=== PATIENT | female | born 2000 | race Caucasian/White ===

== ENCOUNTER 2024-06-18 23:15 | Emergency (ER) | payer OTHER ==
--- OUTSIDE RECORDS SUMMARY | 2024-06-18 23:18 | XMS REPORT | Continuity of Care Document ---
Author Name Unknown Address [address] [facility] [address] [place] [address] [facility] thconnect Address [address] [facility] [address] [place] [address] Care Team Providers Care Employee Health Nurse Name Role Phone Pcp, Patient Does Not Have A Primary Care Physic jennie Gay Dudley MD Attending Clinician [phone] GAY DUDLEY Attending Clinician Unavailable David Fernandez MD Attending Clinician [phone] DAVID FERNANDEZ Attending Clinician Unavailable DAVID FERNANDEZ Attending Clinician Unavailable MICHELLE BOONE Attending Clinician Unavailab Michelle Woodall DO Attending Clinician [phone] ALLAN Attending Clinician Unavailable Ginny_Kasi Attending Clinician Unavailable GAY DUDLEY Admitting Clinician Unavailable DAVID FERNANDEZ Admitting Clinician Unavailable ALLAN Admitting Clinician Unavailable Mikki Admitting Clinician Unavailable Payers Payer Name Policy Type Policy Number Effective Date Expirati on Date Source [facility] MEDICAID [id number] 2021 00:00:00 [facility] (MEDICAID HMO) [id number] 2021 00:00:00 [place] [id number] Problems Condition Name Condition Details Condition Category Status Onset Date Resolution Date Last Treatment Date Treating Clinician Comments Source Chest pain, unspecifie d type Chest pain, unspecifie d type Disease Active 2023-04 00:00: 00 [facility] Cigarette smoker Cigarette smoker Disease Active 2023-04 00:00: 00 [facility] Gastroesop hageal reflux disease without esophagiti s Gastroesop hageal Reflux Disease without Esophagiti s Problem Active 2 00:00: 00 [facility] Nicotine dependence Nicotine Dependence Problem Active 05-04 00:00: 00 [facility] Late entry into care Late Entry into Care Problem Active 05-04 00:00: 00 [facility] History of opioid abuse History of Opioid Abuse Problem Active 05-04 00:00: 00 [facility] Problem Active 05-01 00:00: 00 [facility] No known active problems No known active problems Disease [facility] Allergies, Adverse Reactions, Alerts Allergy Name Allergy Type Status Severity Reaction(s) Onset Date Inactive Date Treating Clinician Comments Source NO KNOWN ALLERGIE S Drug Class Active [facility] Social History Social Habit Start Date Stop Date Quantity Comments Source [facility] of tobacco use Cigarette Smoker [facility] Tobacco use and exposure 2024-04-13 00:00:00 2024-04-13 00:00:00 Smokeless tobacco non-user [facility] History of Social function 2024-04-13 00:00:00 2024-04-13 00:00:00 [facility] Exposure to SARS-CoV-2 (event) 2021-11-21 00:00:00 2021-12-01 17:02:00 Not sure [facility] Sex assigned at 2000 00:00:00 2000 00:00:00 [facility] Smoking Status Start Date Stop Date Source Tobacco smoking consumption unknown [facility] Light Tobacco Smoker [facility] Smokes tobacco daily 2024-04-13 00:00:00 [facility] Medications Ordered Medication Name Filled Medication Name Start Date Stop Date Current Medication? Ordering Clinician Indication Dosage Frequency Signature (SIG) Comments Components Source furosemide (LASIX) injection 20 mg 2023-04 06:45: 00 03-08 06:54 :00 No 20mg 20 mg, IV Push, ONCE, 1 dose, On Tricia 03/08/24 at 0045, STEFANO [facility] furosemide 20 mg tablet 2023-04 00:00: 00 03-16 05:59 :00 No [id number] 20mg Take 1 tablet by mouth every morning for 7 days. [facility] No known medications 12-01 16:54: 26 No No known medication s [facility] buprenorphi ne 8 mg-naloxone 2 mg sublingual tablet TAKE TWO (2) TABLETS SUBLINGUALL Y DAILY. buprenorphi ne 8 mg-naloxone 2 mg sublingual tablet TAKE TWO (2) TABLETS SUBLINGUALL Y DAILY. No buprenorph ine 8 mg-naloxon e 2 mg sublingual tablet TAKE TWO (2) TABLETS SUBLINGUAL LY DAILY. [facility] omeprazole 40 mg capsule,del ayed release Take 1 capsule every day by oral route. omeprazole 40 mg capsule,del ayed release Take 1 capsule every day by oral route. No 1capsul e(s) Q1D omeprazole 40 mg capsule,de layed release Take 1 capsule every day by oral route. [facility] + DHA one daily + DHA one daily No + DHA one daily [facility] Vital Signs Vital Name Observation Time Observation Value Comments S ouraman Systolic blood pressure 2024-04-13 21:41:00 98 mm[Hg] [facility] Diastolic blood pressure 2024-04-13 21:41:00 64 mm[Hg] [facility] Heart rate 2024-04-13 21:41:00 77 /min [facility] Respiratory rate 2024-04-13 21:41:00 18 /min [facility] Body height 2024-04-13 21:41:00 158.8 cm [facility] Body weight 2024-04-13 21:41:00 58.968 kg [facility] BMI 2024-04-13 21:41:00 23.40 kg/m2 [facility] Oxygen saturation in Arterial blood by Pulse oximetry 2024-04-13 21:41:00 98 /min [facility] Systolic blood pressure 2024-03-19 04:15:00 103 mm[Hg] [facility] Diastolic blood pressure 2024-03-19 04:15:00 65 mm[Hg] [facility] Heart rate 2024-03-19 04:15:00 86 /min [facility] Respiratory rate 2024-03-19 04:15:00 13 /min [facility] Oxygen saturation in Arterial blood by Pulse oximetry 2024-03-19 04:15:00 99 /min [facility] Body temperature 2024-03-19 03:58:00 36.61 Hillary [facility] Body height 2024-03-19 03:58:00 157.5 cm [facility] Body weight 2024-03-19 03:58:00 52.164 kg [facility] BMI 2024-03-19 03:58:00 21.03 kg/m2 [facility] Systolic blood pressure 2024-03-08 06:57:00 111 mm[Hg] [facility] Diastolic blood pressure 2024-03-08 06:57:00 61 mm[Hg] [facility] Heart rate 2024-03-08 06:57:00 89 /min [facility] Body temperature 2024-03-08 06:57:00 36.89 Hillary [facility] Respiratory rate 2024-03-08 06:57:00 20 /min [facility] Oxygen saturation in Arterial blood by Pulse oximetry 2024-03-08 06:57:00 99 /min [facility] Body height 2024-03-08 04:21:00 157.5 cm [facility] Body weight 2024-03-08 04:21:00 52.164 kg [facility] BMI 2024-03-08 04:21:00 21.03 kg/m2 [facility] Body height 2021-12-01 22:01:00 157.5 cm [facility] Body weight 2021-12-01 22:01:00 56.7 kg [facility] BMI 2021-12-01 22:01:00 22.86 kg/m2 [facility] Systolic blood pressure 2021-12-01 22:00:00 92 mm[Hg] [facility] Diastolic blood pressure 2021-12-01 22:00:00 67 mm[Hg] [facility] Heart rate 2021-12-01 22:00:00 93 /min [facility] Body temperature 2021-12-01 22:00:00 36.28 Hillary [facility] Respiratory rate 2021-12-01 22:00:00 18 /min [facility] Oxygen saturation in Arterial blood by Pulse oximetry 2021-12-01 22:00:00 99 /min [facility] BP Diastolic 2021-06-11 00:00:00 79 mm[Hg] [facility] Height 2021-06-11 00:00:00 62 [in_i] [facility] BMI (Body Mass Index) 2021-06-11 00:00:00 23.6 kg/m2 [facility] BP Systolic 2021-06-11 00:00:00 107 mm[Hg] [facility] Body Weight 2021-06-11 00:00:00 128.9 [lb_av] [facility] BP Diastolic 2021-05-01 00:00:00 66 mm[Hg] [facility] Height 2021-05-01 00:00:00 62 [in_i] [facility] BMI (Body Mass Index) 2021-05-01 00:00:00 22.9 kg/m2 [facility] BP Systolic 2021-05-01 00:00:00 107 mm[Hg] [facility] Body Weight 2021-05-01 00:00:00 125.2 [lb_av] [facility] Procedures Procedure Date / Time Performed Performing Clinician Source TRANSTHORACIC ECHO (TTE) COMPLETE 2024-04-25 21:38:56 Gay Dudley [facility] EKG-12 LEAD 2024-03-08 07:10:02 David Fernandez [facility] POCT TEST 2024-03-08 05:16:00 David Fernandez [facility] TROPONIN I 2024-03-08 05:08:00 David Fernandez [facility] COMP. METABOLIC PANEL (21052) 2024-03-08 05:08:00 David Fernandez [facility] CBC WITH DIFF 2024-03-08 05:08:00 David Fernandez [facility] D-DIMER 2024-03-08 05:08:00 David Fernandez [facility] N-TERMINAL PRO-BNP 2024-03-08 05:08:00 David Fernandez [facility] URINE DRUG (IMMUNOASSAY) - COMPREHENSIVE DRUG SCREEN 2024-03-08 05:05:00 David Fernandez [facility] URINALYSIS 2024-03-08 05:05:00 David Fernandez [facility] URINALYSIS 2021-12-01 22:11:00 [facility] NOTICE OF PRIVACY PRACTICES 2021-12-01 22:06:23 Doctor Unassigned, [place] [facility] CONSENT/REFUSAL FOR DIAGNOSIS AND TREATMENT 2021-12-01 21:51:50 Doctor Unassigned, [place] [facility] ULTRASOUND REPEAT 2021-06-11 00:00:00 [facility] ULTRASOUND, UTERUS REAL TIME WITH IMAGE DOC, AND MATERNAL EVAL PLUS DETAILED ANATOMIC EXAMINATION, TRANSABDOMINAL APPROACH; SINGLE OR FIRST GESTATION 2021-05-01 00:00:00 [facility] Plan of Care Planned Activity Planned Date Details Comments Source Diagnostic Test Pending 2021-06-11 00:00:00 urinalysis, dipstick [code = urinalysis, dipstick] [facility] Diagnostic Test Pending 2021-06-11 00:00:00 CBC w/ auto diff [code = CBC w/ auto diff] [facility] Diagnostic Test Pending 2021-06-11 00:00:00 HIV (1+2) Ab screen, serum [code = HIV (1+2) Ab screen, serum] [facility] Diagnostic Test Pending 2021-06-11 00:00:00 glucose tolerance test, 1-hour [code = glucose tolerance test, 1-hour] [facility] Diagnostic Test Pending 2021-06-11 00:00:00 RPR (rapid plasma reagin), serum [code = RPR (rapid plasma reagin), serum] [facility] Diagnostic Test Pending 2021-06-11 00:00:00 Blood group antibody screen [Presence] in Serum or Plasma [code = 890-4] [facility] Encounters Start Date/Time End Date/Time Encounter Type Admission Type Attending [facility] Care Facility Care Department Encounter ID Source 2024-04-26 00:00:00 2024-04-27 13:36:57 Telephone Ren [facility] [id number] [facility] 2024-04-25 15:00:00 2024-04-25 23:59:00 [id number] 2024-04-25 15:00:00 2024-04-25 23:59:00 Hospital Encounter Ren [facility] [id number] [facility] 2024-04-13 15:40:00 2024-04-13 15:58:14 [facility] [id number] [facility] 2024-04-13 15:40:00 2024-04-13 15:58:14 Office Visit Ren [facility] [id number] [facility] 2024-03-18 22:01:00 2024-03-18 22:52:00 Emergency David Fernandez [facility] [id number] [id number] [facility] 2024-03-07 22:26:00 2024-03-08 01:15:00 Emergency X DAVID FERNANDEZ WAKILI [facility] ERT [id number] [facility] 2024-03-07 22:26:00 2024-03-08 01:15:00 Emergency David Fernandez [facility] [id number] [id number] [facility] 2021-12-01 17:08:00 2021-12-01 18:39:00 Emergency Shannan MICHELLE BOONE [facility] ERT [id number] [facility] 2021-12-01 17:08:00 2021-12-01 18:39:00 Emergency Michelle Boone [facility] [id number] [facility] 2021-07-06 12:12:00 2021-07-06 12:12:00 Outpatient [facility] [id number] [facility] 2021-06-11 00:00:00 2021-06-11 00:00:00 Geremias Ayers MD: [address] [place] [address], [place] [address] , Ph. [phone] Mikki MMG [facility] [id number] [facility] 2021-05-01 00:00:00 2021-05-01 00:00:00 Nohemi Downs, SPLIT AND [employer]UM ROOM SUPERVISOR-BC: [address], [place] [address] , Ph. [phone] Rutledge_L MMG [facility] [id number] [facility] 2021-04-21 03:01:00 2021-04-21 03:01:00 [place] [id number] [facility] 2021-01-27 02:29:00 2021-01-27 02:29:00 Outpatient Rutledge_L MMG MMG [id number] [facility] 2021-01-20 04:34:00 2021-01-20 04:34:00 Outpatient Rutledge_L MMG MMG [id number] [facility] 2020-08-25 04:03:00 2020-08-25 04:03:00 Outpatient [facility] [id number] [facility] Results Test Description Test Time Test Comments Results Result Co mments Source [facility] [id number] 05:16:00* Test Item Value Reference Range Interpretation Comme nts POCT PREG (test code = 1605) Negative On board controls acceptable with C Line (test code = 3574) Yes POCT PREG LOT # (test code = 3575) [id number] POCT PREG TEST DATE ( test code = 3576) 01/20/2025 Lab Interpretation (test cod e = 97378-7) Normal [facility] [Mass/volume] in Serum or Plasma --1 hour post dose [id number] 11:05:00* Test Item Value Reference Range Interpretation Comme nts Results (test code = Results) 149 [facility] macro (dipstick) panel - [id number] 09:16:58* Test Item Value Reference Range Interpretation Comme nts Leukocytes (test code = Leukocytes) Negative Nitrite (test code = Nitrite) negative Urobilinogen (test code = Urobilinogen) .2 Protein (test code = Protein) Negative pH (test code = pH) 7.5 Blood (test code = Blood) Negative Specific [place] (test code = Specific [place]) 1.020 Ketone (test code = Ketone) Negative Bilirubin (test code = Bilirubin) Negative Glucose (test code = Glucose) Negative Appearance (test code = Appearance) Clear Color (test code = Color) Yellow [facility] macro (dipstick) panel - [id number] 13:59:56* Test Item Value Reference Range Interpretation Comme nts Leukocytes (test code = Leukocytes) Negative Nitrite (test code = Nitrite) negative Urobilinogen (test code = Urobilinogen) .2 Protein (test code = Protein) Negative pH (test code = pH) 7.0 Blood (test code = Blood) Negative Specific [place] (test code = Specific [place]) 1.015 Ketone (test code = Ketone) Negative Bilirubin (test code = Bilirubin) Negative Glucose (test code = Glucose) Negative Appearance (test code = Appearance) Clear Color (test code = Color) Dark Yellow [facility], [id number] 13:52:12* Test Item Value Reference Range Interpretation Comme nts Test (test code = Test) positive [facility] HospitalBacteria identified in Urine by [id number] 02:04:00* Test Item Value Reference Range Interpretation Comme nts Bacteria identified in Urine by Culture (test code = 630-4) no growth at 2 days [facility] Auto Differential panel - [id number] 02:04:00 * Test Item Value Reference Range Interpretation Comme nts white blood count (test code = white blood count) 7.8 K/uL 4.0-11.5 red blood count (test code = red blood count) 3.97 M/uL 3.80-5.20 hemoglobin (test code = hemoglobin) 11.7 g/dL 10.5-15.7 hematocrit (test code = hematocrit) 35.7 % 34.0-50.0 MCV [Entitic volume] (test c ode = 48348-4) 89.9 fL 86.0-100.0 mean corpuscular hemoglobin (test code = mean corpuscular hemoglobin) 29.5 pg 26.2-33.4 mean corpuscular HGB conc (t est code = mean corpuscular HGB conc) 32.8 g/dL 30.0-34.0 red cell distribution width (test code = red cell distribution width) 13.4 % 12.0-15.5 platelet count (test code = platelet count) 323 K/uL 165-450 Platelets reticulated/100 platelets in Blood by Automated count (test code = 65422-8) 2.0 % 0-8 mean platelet volume (test c ode = mean platelet volume) 9.2 fL 9.4-12.6 L Segmented neutrophils/100 leukocytes in Blood (test code = 93649-4) 78.1 % 44.4-80.1 Immature granulocytes [#/vol ume] in Blood (test code = 74197-6) 0.03 K/uL 0.00-0.03 lymphocyte% (test code = lymphocyte%) 15.9 % 10.0-50.0 mono % (test code = mono %) 4.9 % 3.6-12.0 eos % (test code = eos %) 0.3 % 0.0-5.4 Basophils/100 leukocytes in Unspecified specimen (test code = 40154-0) 0.4 % 0.1-1.2 Band form neutrophils [#/vol ume] in Blood (test code = 70354-3) 6.07 K/uL 1.56-6.13 Lymphocytes [#/volume] in Unspecified specimen by Automated count (test code = 50910-4) 1.23 K/uL 1.18-3.74 mono # (test code = mono #) 0.38 K/uL 0.24-0.86 eos # (test code = eos #) 0.02 K/uL 0.04-0.36 L basophil # (test code = baso alexis #) 0.03 K/uL 0.01-0.08 NRBC% (test code = NRBC%) 0 /100 WBC 0-0.2 NRBC# (test code = NRBC#) 0 K/uL [facility] Group[facility] & Rh group [Type] in [id number] 02:04:00* Test Item Value Reference Range Interpretation Comme nts Rh [Type] in Blood (test cod e = 75583-0) 4+ ABO and Rh group panel - Blo od (test code = 97714-3) O positive [facility] [Presence] in Serum or Plasma 2021-05-01 02:04:00* Test Item Value Reference Range Interpretation Comme nts Blood group antibody screen [Presence] in Serum or Plasma (test code = 890-4) negative [facility] Group[facility]agin Ab [Presence] in Serum by [id number] 00:00:00* Test Item Value Reference Range Interpretation Comme nts Reagin Ab [Presence] in Seru m by RPR (test code = 30373-6) nonreactive nonreactive [facility] GroupDifferential panel, method unspecified - [id number] 00:00:00NeutrophilsBandLymphocyteAtypical LymphMonocyteEosinophilBasophilMetamyelocyteMyelocytePromyelocyteBlastsNucleated Red Blood CellPlasma CellDifferential CommentAbs Neutrophil Count (Man)Abs Lymph Count (Man)Abs Monocyte Count (Man)Abs Eosinophil Count (Man)Abs Basophil Count (Man)Platelet EstimatePlatelet MorphologyHypochromasiaPoikilocytosisAnisocytosisMicrocytosisMacrocytosisSchisto cytesTarget CellsStomatocyteToxic GranulationBurr CellsHypersegmented PolysSmudge CellsMatagorda Medical GroupHIV 1+2 Ab [Presence] in [id number] 00:00:00HIV P24 AgHIV-1/2 AbMatarda Medical GroupHepatitis B virus surface Ag [Presence] in [id number] 00:00:00* Test Item Value Reference Range Interpretation Comme nts .hepatitis B surface antigen (test code = .hepatitis B surface antigen) negative negative [facility] Notes Date/Time Note Provider Source 2024-04-27 13:32:28 3rd attempt to contact patient with results/recommendations. LVM for patient to return call to [phone]. Letter mailed to patient. N ANATOMY TEACHER Loren Wolf RN [facility] 2024-04-26 15:36:10 Images from the original note were not included. Second attempt to contact patient with results/recommendations. LVM for patient to return call to [phone]. Gay Dudley MD P Cardiology Nurse ECHO is normal. F/u PRN. N ANATOMY TEACHER Vandana Odom RN [facility] 2024-04-26 11:38:07 Images from the original note were not included. Attempted to contact patient with results/recommendations. LVM for patient to return call to [phone]. PSS if patient returns call please let her know the heart ultrasound was normal. Dr. Dudley would recommend to follow up with him as needed (such as if new symptoms develop or worsen). Gay Dudley MD P Cardiology Nurse ECHO is normal. F/u PRN. [facility] 2024-03-18 22:51:21 Pt. Refused IV, labs; no IV access at D/C; ambulates with steady gait [facility] Diana Aleman RN [facility] 2024-03-18 22:45:00 Pt. Requested to leave AMA; provided notified; AMA ppw completed [facility] 2024-03-18 21:57:47 Pt to ED CO luis carlos CP x 3 hours. States that she has a hx of "fluid in her chest". Denies SOB, Denies N/V. [facility] 2024-03-08 01:14:45 Pt given printed and verbal discharge instructions regarding leg swelling. Prescriptions provided Pt verbalized understanding of instructions, pt awake alert oriented, resp reg unlabored, skin w/d, color appropriate for race, moves all ext well,pt encouraged to follow up with pcp. Advised to seek medical attention for new/prolonged/worsening of symptoms. No adverse reaction to meds given in ER noted upon discharge. PIV d'cd, dressing to site, catheter in tact. Awake, alert oriented, resp reg unlabored, skin w/d, pt leaving amb with steady gait, in no apparent distress. N ANATOMY TEACHER Allyson Boone RN [facility] 2024-03-07 22:18:59 Arrived ambulatory C/o bilateral LE swelling and chest pain x3 days Denies any significant medical hx N ANATOMY TEACHER Di Nichols RN [facility] 2024-03-07 22:16:00 Associated Order(s): EKG-12 Lead ROUTINE ONCE Pre-Procedure Diagnose(s): Chest pain, unspecified type Post-Procedure Diagnose(s): Chest pain, unspecified type [facility] Emergency Department Note Patient Name: Coreen Lyle Date of : 2000 23 year old female Treatment Room: [place] [address] Primary Care Physician: PATIENT DOES NOT HAVE A PCP Patient Escorted by: Self [9] Mode of Arrival: Personal means [1] EMS Treatment Prior to ED Arrival: HOSPITALITY SPECIALIST treatment: None Travel and Exposure Screening: Symptoms Does patient have any of these symptoms?: (not recorded) Exposure Screening Has patient had contact with someone with a communicable disease in the last month?: (not recorded) Diseases exposed to:: (not recorded) Is Patient ?: (not recorded) Exposure Date: (not recorded) Chief Complaint: Chief Complaint Patient presents with Edema History of Present Illness: Coreen Lyle is a 23 year old female who presents to the ED for evaluation of bilateral leg swelling X 3 days. Also reports mid sternal chest pain that began yesterday. Pain is described as dull non radiating and rated as 6/10 at maximal intensity and has been persistent for the past two to three days. Today pt also developed cough that is productive of dark yellowish phlegm, No fever or chills. Has mild SOB. No travel hx. No personal or family hx of DVT/PE/CAD. Pt smokes 1 PPD x 10 years. Denies use of illicit drugs. 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 LNMP Feb 02. Denies any urinary symptoms or changes in urine quality/quantity History provided by: Patient and medical records interpreter used: No Leg Pain Location: Foot and ankle Time since incident: 3 days Injury: no Ankle location: L ankle and R ankle Foot location: L foot and R foot Pain details: Quality: Cramping Radiates to: Does not radiate Severity: Moderate Onset quality: Gradual Duration: 3 days Timing: Intermittent Progression: Worsening Chronicity: New Dislocation: no Foreign body present: No foreign bodies Prior injury to area: No Relieved by: None tried Worsened by: Bearing weight Ineffective treatments: None tried Associated symptoms: swelling Associated symptoms: no back pain, no decreased ROM, no fatigue, no fever, no itching, no muscle weakness, no neck pain, no numbness, no stiffness and no tingling Risk factors: no concern for non-accidental trauma, no frequent fractures, no known bone disorder, no obesity and no recent illness Past Medical History/Immunizations: None Tetanus received in last 5 years: Unknown Childhood immunizations: Up-to-date Allergies: No Known Allergies Past Social History: Substance & Sexual Activity No substance use or sexual activity history on file. Past Surgical History: None Review of Systems: Review of Systems Constitutional: Negative. Negative for diaphoresis, fatigue and fever. HENT: Negative. Eyes: Negative. Respiratory: Positive for cough. Breasts: Negative. Cardiovascular: Positive for chest pain and leg swelling. Negative for palpitations. Gastrointestinal: Negative. Genitourinary: Negative. Musculoskeletal: Negative. Negative for back pain, neck pain and stiffness. Skin: Negative. Negative for itching. Neurological: Negative. Psychiatric/Behavioral: Negative. All other systems reviewed and are negative. Endocrine: Endocrine negative Physical Exam: ED Triage Vitals [03/07/24 2221] Weight 52.2 kg (115 lb) Actual or estimated Actual Height 1.575 m (5' 2") BP 123/78 Pulse 96 Resp 17 Temp 36.9 ?C (98.4 ?F) Temp source Oral SpO2 99 % Measured on Room air Physical Exam Vitals and nursing note reviewed. Constitutional: General: She is not in acute distress. Appearance: Normal appearance. She is well-developed and normal weight. She is not ill-appearing, toxic-appearing or diaphoretic. HENT: Head: Normocephalic and atraumatic. Right Ear: External ear normal. Left Ear: External ear normal. Nose: Nose normal. No congestion or rhinorrhea. Mouth/Throat: Mouth: Mucous membranes are moist. Pharynx: Oropharynx is clear. No oropharyngeal exudate or posterior oropharyngeal erythema. Eyes: General: No scleral icterus. Right eye: No discharge. Left eye: No discharge. Extraocular Movements: Extraocular movements intact. Conjunctiva/sclera: Conjunctivae normal. Pupils: Pupils are equal, round, and reactive to light. Neck: Thyroid: No thyromegaly. Cardiovascular: Rate and Rhythm: Normal rate and regular rhythm. Pulses: Normal pulses. Heart sounds: Normal heart sounds. No murmur heard. Pulmonary: Effort: Pulmonary effort is normal. No respiratory distress. Breath sounds: Normal breath sounds. No stridor. No wheezing, rhonchi or rales. Chest: Chest wall: No tenderness. Abdominal: General: Bowel sounds are normal. There is no distension. Palpations: Abdomen is soft. There is no mass. Tenderness: There is no abdominal tenderness. There is no right CVA tenderness, left CVA tenderness, guarding or rebound. Hernia: No hernia is present. Musculoskeletal: General: No swelling, tenderness, deformity or signs of injury. Normal range of motion. Cervical back: Normal range of motion and neck supple. No rigidity or tenderness. Right lower leg: Edema present. Left lower leg: Edema present. Comments: No calf tenderness. Has bilateral feet/ankle swelling Lymphadenopathy: Cervical: No cervical adenopathy. Skin: General: Skin is warm and dry. Capillary Refill: Capillary refill takes less than 2 seconds. Coloration: Skin is not jaundiced or pale. Findings: No bruising, erythema, lesion or rash. Neurological: General: No focal deficit present. Mental Status: She is alert and oriented to person, place, and time. Cranial Nerves: No cranial nerve deficit. Sensory: No sensory deficit. Motor: No weakness or abnormal muscle tone. Coordination: Coordination normal. Gait: Gait normal. Deep Tendon Reflexes: Reflexes normal. Psychiatric: Behavior: Behavior normal. Thought Content: Thought content normal. Judgment: Judgment normal. Radiology: XR CHEST 1 VW Preliminary Result EXAM: XR CHEST 1 VW COMPARISON: None HISTORY: Chest Pain IMPRESSION FINDINGS/IMPRESSION: The lung volumes are normal. Mildly increased interstitial prominence is nonspecific but may be seen with pulmonary edema. No pleural effusion or pneumothorax The cardiac silhouette appears normal accounting for technique. No focal osseous lesions or acute osseous findings are detected. Preliminary Report Dictated by Resident: Noy Sierra Lab Results: Lab Results COMP. METABOLIC PANEL (51267) - Abnormal Result Value Ref Range NA 140 135 - 145 mmol/L K 3.9 3.5 - 5.0 mmol/L CL 103 98 - 108 mmol/L CO2 TOTAL 33 (*) 23 - 31 mmol/L AGAP 4 2 - 16 BUN 10 7 - 23 mg/dL GLUCOSE 92 70 - 110 mg/dL CREATININE 0.65 0.50 - 1.04 mg/dL TOTAL BILI 0.1 0.1 - 1.1 mg/dL CALCIUM 9.2 8.6 - 10.6 mg/dL T PROTEIN 7.2 6.3 - 8.2 g/dL ALBUMIN 4.4 3.5 - 5.0 g/dL ALK PHOS 51 34 - 122 U/L ALTv 27 5 - 35 U/L AST(SGOT) 36 13 - 40 U/L eGFR 126.3 mL/min/1.73m2 URINALYSIS - Abnormal APPEARANCE Clear Clear COLOR Yellow Yellow PH 7.0 4.8 - 8.0 SP GRAVITY 1.019 1.003 - 1.030 GLU U QUAL Normal Normal BLOOD Negative Negative KETONES Negative Negative PROTEIN Negative Negative UROBILIN Normal Normal BILIRUBIN Negative Negative NITRITE Negative Negative LEUK LUISANA Negative Negative RBC/HPF 0 0 - 3 HPF WBC/HPF 0 0 - 5 HPF BACTERIA Negative Negative MUCOUS Slight (*) Negative LPF AMORPHOUS Rare Rare HPF SQ EPITH 2 HPF N-TERMINAL PRO-BNP - Normal NT-proBNP 47 <=125 pg/mL TROPONIN I - Normal TROPONIN I <0.012 <=0.034 ng/mL POCT TEST - Normal POCT PREG Negative On board controls acceptable with C Line Yes POCT PREG LOT # [id number] POCT PREG TEST DATE 01/20/2025 URINE DRUG (IMMUNOASSAY) - COMPREHENSIVE DRUG SCREEN - Normal AMPHET Negative Negative INNA U Negative Negative BENZO U Negative Negative Cocaine Metabolite Negative Negative METHADONE Negative Negative OPIATES Negative Negative PCP Negative Negative THC Negative Negative D-DIMER - Normal D-DIMER 0.49 <0.50 ?g/mL (FEU) CBC WITH DIFF WBC 6.94 4.30 - 11.10 10*3/?L RBC 3.99 3.93 - 5.25 10*6/?L HGB 12.2 11.6 - 15.0 g/dL HCT 37.1 35.7 - 45.2 % MCV 93.0 80.6 - 95.5 fL MCH 30.6 25.9 - 32.8 pg MCHC 32.9 31.6 - 35.1 g/dL RDW-SD 42.8 39.0 - 49.9 fL RDW-CV 12.5 12.0 - 15.5 % PLT 286 166 - 358 10*3/?L MPV 10.1 9.5 - 12.9 fL NRBC/100 WBC 0.0 0.0 - 10.0 /100 WBCs NRBC x10 3 <0.01 10*3/?L GRAN MAT (NEUT) % 49.8 % IMM GRAN % 0.10 % LYMPH % 39.0 % MONO % 5.9 % EOS % 4.8 % BASO % 0.4 % GRAN MAT x10 3 (ANC) 3.45 1.88 - 7.09 10*3/uL IMM GRAN x10 3 <0.03 0.00 - 0.06 10*3/uL LYMPH x10 3 2.71 1.32 - 3.29 10*3/uL MONO x10 3 0.41 0.33 - 0.92 10*3/uL EOS x10 3 0.33 0.03 - 0.39 10*3/uL BASO x10 3 0.03 0.01 - 0.07 10*3/uL Orders and Treatments: Orders Placed This Encounter Procedures XR CHEST 1 VW N-Terminal Pro-Bnp Cbc with Diff Comp. Metabolic Panel (44263) Troponin I Urinalysis POCT TEST DRUG SCREEN PANEL 2 URINE D-Dimer Orders Placed This Encounter Medications furosemide (LASIX) injection 20 mg furosemide 20 mg tablet First Provider Eval: ED Events Date/Time Event User Comments 03/07/242219 Medical Screening Begins DAVID FERNANDEZ MD -- 03/07/242219 First Provider Evaluation DAVID FERNANDEZ MD -- ED COURSE Diagnosis/Impression as of 03/08/24 0109 Edema of both legs Chest pain, unspecified type Procedures: EKG-12 Lead ROUTINE ONCE Date/Time: 03/07/2024 11:15 PM Performed by: David Fernandez MD Authorized by: David Fernandez MD ECG interpreted by ED Physician in the 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 of a computer game 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: yes Previous ECG: Previous ECG: Unavailable Interpretation: Interpretation: normal Rate: ECG rate: 87 ECG rate assessment: normal Rhythm: Rhythm: sinus rhythm Ectopy: Ectopy: none QRS: QRS axis: Normal QRS intervals: Normal QRS conduction: normal ST segments: ST segments: Normal T waves: T waves: normal Q waves: Abnormal Q-waves: not present MDM: Medical Decision Making Coreen Lyle is a 23 year old female with no significant PMH who presents to the ED with bilateral leg swelling Problems Addressed: Chest pain, unspecified type: acute illness or injury Edema of both legs: acute illness or injury Amount and/or Complexity of Data Reviewed External Data Reviewed: notes. Labs: ordered. Decision-making details documented in ED Course. Radiology: ordered and independent interpretation performed. Decision-making details documented in ED Course. ECG/medicine tests: ordered and independent interpretation performed. Decision-making details documented in ED Course. Risk Prescription drug management. Risk Details: Will refer to PCP/CARDIOLOGY FOR FURTHER EVALUATION Flowsheet Documentation: Scoring Tools: No data recorded Disposition/Condition: ED Disposition ED Disposition Discharge Condition Stable Comment -- Discharge Medications: Patient's Medications START taking these medications FUROSEMIDE 20 MG TABLET Take 1 tablet by mouth every morning for 7 days. CONTINUE taking these medications which have NOT CHANGED No medications on file START taking Modified Medications as Prescribed No medications on file STOP taking these medications No medications on file Follow-up: Electronically signed by: David Fernandez MD 03/08/24109 [facility]
--- NOTE | 2024-06-18 23:45 | ER ---
Nurse's Notes [facility] Name: Tran Lyle Age: 24 yrs Sex: Female : 2000 Arrival Date: 06/18/2024 Time: 23:15 Bed 5 Private MD: Diagnosis: Dental root caries Presentation: 06/18 23:28 Chief complaint: Patient states: left bottom jaw pain and facial swelling that started me1 two days ago. Denies fever. Coronavirus screen: Vaccine status: Patient reports being unvaccinated. Ebola Screen: No symptoms or risks identified at this time. Initial Sepsis Screen: Does the patient meet any 2 criteria? HR > 90 bpm. Risk Assessment: Do you want to hurt yourself or someone else? Patient reports no desire to harm self or others. Onset of symptoms was June 16, 2024. 23:28 Method Of Arrival: Ambulatory me1 23:28 Acuity: ABDIRIZAK 4 me1 23:49 Initial Sepsis Screen: Does the patient have a suspected source of infection? No. cm10 Patient's initial sepsis screen is negative. 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 - Infectious Disease History:: Denies. - Social history:: Smoking status: Patient reports the use of cigarette tobacco products, smokes one-half pack cigarettes per day. Screenin:48 [facility] ED Fall Risk Assessment (Adult) History of falling in the last 3 months, cm10 including since admission No falls in past 3 months (0 pts) Confusion or Disorientation No (0 pts) Intoxicated or Sedated No (0 pts) Impaired Gait No (0 pts) Mobility Assist Device Used No (0 pt) Altered Elimination No (0 pt) Score/Fall Risk Level 0 - 2 = Low Risk Oriented to surroundings, Maintained a safe environment, Hourly rounding (assess needs \T\ fall precautionary measures) done. Abuse screen: Denies threats or abuse. Denies injuries from another. Nutritional screening: No deficits noted. Tuberculosis screening: No symptoms or risk factors identified. Assessment: 23:41 General: Appears in no apparent distress. comfortable, Behavior is calm, cooperative, jb4 appropriate for age. Pain: Complains of pain in left side of head Pain does not radiate. Pain currently is 6 out of 10 on a pain scale. Neuro: Level of Consciousness is awake, alert, obeys commands, Oriented to person, place, time, situation. Cardiovascular: Patient's skin is warm and dry. Respiratory: Airway is patent Respiratory effort is even, unlabored, Respiratory pattern is regular, symmetrical. Derm: Skin is intact, Skin is pink, warm \T\ dry. Musculoskeletal: Circulation, motion, and sensation intact. Range of motion: intact in all extremities. Vital Signs: 23:28 BP 120 / 77; Pulse 99; Resp 16; Temp 96; Pulse Ox 97.7% ; Weight 52.16 kg; Height 5 ft. me1 2 in. ; Pain 7/10; 23:28 Body Mass Index 21.03 (52.16 kg, 157.48 cm) me1 23:28 Pain Scale: Adult vt1 ED Course: 23:18 Patient arrived in ED. jj6 23:20 Himanshu Quevedo FNP-C is [facility]. dr5 23:20 Rose Marie Sierra MD is Attending Physician. dr5 23:30 Triage completed. me1 23:30 Arm band placed on Patient placed in an exam room. me1 23:32 Aurelio Navarro, RN is Primary Nurse. jb4 23:49 Patient has correct armband on for positive identification. Provided Education on: cm10 follow-up instructions. 23:49 No provider procedures requiring assistance completed. Patient did not have IV access cm10 during this emergency room visit. Administered Medications: No medications were administered Medication: 23:48 VIS not applicable for this client. cm10 Outcome: 23:45 Discharge ordered by MD. dr5 23:48 Discharged to home ambulatory, cm10 23:48 Condition: good 23:48 Discharge instructions given to patient, Instructed on discharge instructions, follow up and referral plans. medication usage, Demonstrated understanding of instructions, follow-up care, medications, Prescriptions given X 2, 23:50 Patient left the ED. cm10 Signatures: Aurelio Navarro, RN RN jb4 Margaret Luis jj6 Lynn Sommer RN RN cm10 Twila Jimenez RN RN me1 Himanshu Quevedo, MEDICAL LAB SCIENTIST-C MEDICAL LAB SCIENTIST-Cdr5
--- NOTE | 2024-06-18 23:45 | EDPHYS ---
Physician Documentation [facility] Name: Tran Lyle Age: 24 yrs Sex: Female : 2000 Arrival Date: 06/18/2024 Time: 23:15 Bed 5 Private MD: ED Physician Rose Marie Sierra HPI: 06/19 00:35 This 24 yrs old Female presents to ER via Ambulatory with complaints of Jaw dr5 Pain, Facial Swelling. 00:35 Onset: The symptoms/episode began/occurred 2 day(s) ago. Patient is a 24-year-old dr5 female with no past medical history coming in with left-sided tooth pain and mild left facial swelling. Patient states that she would like to have infection taken care of so that she can have dental procedure completed by dentist. Patient has been taking ibuprofen and Tylenol with mild relief.. 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 - Infectious Disease History:: Denies. - Social history:: Smoking status: Patient reports the use of cigarette tobacco products, smokes one-half pack cigarettes per day. ROS: 06/19 00:35 Constitutional: as per hpi dr5 Exam: 00:35 Constitutional: This is a well developed, well nourished patient who is awake, alert, dr5 and in no acute distress. Head/Face: Normocephalic, atraumatic. Neck: Trachea midline, no thyromegaly or masses palpated, and no cervical lymphadenopathy. Supple, full range of motion without nuchal rigidity, or vertebral point tenderness. No Meningismus. Chest/axilla: Normal chest wall appearance and motion. Nontender with no deformity. No lesions are appreciated. Cardiovascular: Regular rate and rhythm with a normal S1 and S2. Normal PMI, no JVD. No pulse deficits. Respiratory: Lungs have equal breath sounds bilaterally, clear to auscultation. No rales, rhonchi or wheezes noted. No increased work of breathing, no retractions or nasal flaring. Back: No spinal tenderness. No costovertebral tenderness. Full range of motion. Skin: Warm, dry with normal turgor. Normal color with no rashes, no lesions, and no evidence of cellulitis. MS/ Extremity: Pulses equal, no cyanosis. Neurovascular intact. Full, normal range of motion. Neuro: Awake and alert, GCS 15, oriented to person, place, time, and situation. Cranial nerves II-XII grossly intact. Motor strength 5/5 in all extremities. Sensory grossly intact. Cerebellar exam normal. Normal gait. 00:35 Head/face: Noted is swelling, that is mild, of the left jaw, 00:35 ENT: Mouth: Tongue: is normal, abscess, that is minimal, of the left buccal mucosa, drooling, is not appreciated, Vital Signs: 06/18 23:28 BP 120 / 77; Pulse 99; Resp 16; Temp 96; Pulse Ox 97.7% ; Weight 52.16 kg; Height 5 ft. me1 2 in. ; Pain 7/10; 23:28 Body Mass Index 21.03 (52.16 kg, 157.48 cm) me1 23:28 Pain Scale: Adult me1 MDM: 23:20 Medical Screening Exam initiated dr5 06/19 00:35 Differential diagnosis: viral Infection, bacterial infection, Dental abscess, dental dr5 caries. Data reviewed: vital signs, nurses notes. Care significantly affected by the following Social Determinants of Health: Poor access to healthcare and/or lack of insurance, Poor access to transportation, Problems related to employment. Counseling: I had a detailed discussion with the patient and/or guardian regarding the historical points, exam findings, and any diagnostic results supporting the discharge/admit diagnosis, the presence of at least one elevated blood pressure reading (>120/80) during this emergency department visit, the need for outpatient follow up, for definitive care, a dentist, a family practitioner, to return to the emergency department if symptoms worsen or persist or if there are any questions or concerns that arise at home. ED course: Will give patient course of Augmentin to help with dental infection. Patient will follow-up with dentist. Gave patient tramadol to take as needed. Continue taking Tylenol and Motrin as needed for pain.. Administered Medications: No medications were administered Disposition Summary: 06/18/24 23:45 Discharge Ordered Notes: Location: Home dr5 Condition: Stable dr5 Diagnosis - Dental root caries dr5 Followup: dr5 - With: Emergency Department - When: As needed - Reason: Worsening of condition Followup: dr5 - With: Private Physician - When: 1 - 2 days - Reason: Recheck today's complaints, Continuance of care, Re-evaluation by your physician Discharge Instructions: - Discharge Summary Sheet dr5 - Dental Abscess dr5 Forms: - Medication Reconciliation Form dr5 - Antibiotic Education dr5 - Patient Portal Instructions dr5 - Leadership Thank You Letter dr5 Prescriptions: - Augmentin 875-125 mg Oral Tablet - take 1 tablet ORAL route every 12 hours for 10 days; 20 tablet; Refills: 0, dr5 Product Selection Permitted - Tramadol 50 mg Oral Tablet - take 1 tablet ORAL route every 8 hours as needed; 12 tablet; Refills: 0, dr5 Product Selection Permitted Signatures: Twila Jimenez RN RN me1 Himanshu Quevedo, CEMENT HANDLER-C CEMENT HANDLER-Cdr5
[2024-06-18 23:56] VITALS: BP 120/77; TEMP 96
== END 2024-06-18 23:50 | disposition home or self-care (01) ==
LOC: ER 23:15
DX: K02.7 Dental root caries (principal)
CPT/HCPCS: 99283